=== PATIENT | male | born 1995 | race Caucasian/White ===

== ENCOUNTER 2017-06-15 17:11 | Emergency (ER) | payer OTHER ==
[2017-06-15 17:18] VITALS: BP 127/76; PULSE 79; RESP 20; TEMP 99
--- NOTE | 2017-06-15 17:56 | XR ---
EXAMINATION TYPE: XR shoulder complete LT DATE OF EXAM: 06/15/2017 COMPARISON: NONE HISTORY: Pain TECHNIQUE: Shoulder examined in 3 views FINDINGS: The humeral head articulates with the glenoid. The acromio-clavicular junction is normal. No acute fractures or dislocations are evident. A follow up study can be performed 7-10 days from acute trauma for continued pain. IMPRESSION: 1. Normal Shoulder
--- NOTE | 2017-06-15 18:49 | ED ---
General Adult HPI - General Chief complaint: Extremity Injury, Upper Stated complaint: [facility] LEFT SHOULDER INJURY Time Seen by Provider: 06/15/17 17:39 Source: patient, RN notes reviewed Mode of arrival: ambulatory Limitations: no limitations - History of Present Illness Initial comments: 21-year-old male presents the emergency department for chief complaint of left shoulder pain x 1 hour. Patient states he was moving a box at work when he felt a pop in his shoulder. Patient states he has had pain since that time. Patient denies any shooting pain in his left arm. Patient states he can move his hand on the left upper extremity without any difficulty and he has full sensation in his hand. Patient states he can move his elbow. Patient denies pain in the wrist or elbow. Patient also states she has some tightness in the back between the scapula and spine. Patient states he does not have any pain in his neck. Patient denies any other complaints at this time. Patient denies shortness of breath, chest pain, abdominal pain, nausea or vomiting. - Related Data Previous Rx's Medication Instructions Recorded Cyclobenzaprine [Flexeril] 5 mg PO TID #12 tablet 06/15/17 Ibuprofen [Motrin] 600 mg PO Q8HR PRN #20 tab 06/15/17 Allergies Allergy/AdvReac Type Severity Reaction Status Date / Time No Known Allergies Allergy Verified 06/15/17 17:18 Review of Systems ROS Statement: Those systems with pertinent positive or pertinent negative responses have been documented in the HPI. ROS Other: All systems not noted in ROS Statement are negative. Past Medical History Past Medical History: No Reported History History of Any Multi-Drug Resistant Organisms: None Reported Past Surgical History: No Surgical Hx Reported Past Psychological History: No Psychological Hx Reported Smoking Status: Never smoker Past Alcohol Use History: None Reported Past Drug Use History: None Reported General Exam Limitations: no limitations Respiratory exam: Present: normal lung sounds bilaterally. Absent: respiratory distress, wheezes, rales, rhonchi, stridor Cardiovascular Exam: Present: regular rate, normal rhythm, normal heart sounds. Absent: systolic murmur, diastolic murmur, rubs, gallop, clicks Extremities exam: Present: tenderness (Patient has some tenderness to the anterior left shoulder. Patient also has some tenderness to the superior trapezius between the scapula and spine on the left side. He also has very mild tenderness to the to the left side of the neck. Patient denies any tenderness along the C-spine or thoracic/lumbar spine.), normal capillary refill (Refill less than 2 seconds in the left upper extremity. Radial pulse 2 + in the left upper extremity.), other (+ empty can and dewey test. Patient not able to tolerate Neers test). Absent: full ROM (Patient has limited extension and abduction of left shoulder. Patient has full flexion of the left shoulder. Patient has full range of motion of the neck.), joint swelling (No swelling to the left shoulder.) Back exam: Present: normal inspection, full ROM, paraspinal tenderness ( Tenderness to the left upper back between the scapula and spine.). Absent: tenderness, vertebral tenderness Course Vital Signs 06/15/17 17:16 Temperature 99.0 F Pulse Rate 79 Respiratory 20 Rate Blood Pressure 127/76 O2 Sat by Pulse 99 Oximetry Medical Decision Making - Medical Decision Making 21-year-old male presents to the emergency department for chief complaint of left shoulder pain 1 hour. Patient was moving boxes at work when he felt a pop. Patient denies falling or any other injuries. Patient denies pain in the spine. On exam patient has some limited range of motion of the left shoulder. No swelling or ecchymosis noted of the left shoulder. She has some tenderness to this. Trapezius between the scapula and spine. No vertebral tenderness or pain with movement of the neck. X-ray of the left shoulder shows no acute fractures or dislocations. Patient likely has a muscle strain of the trapezius. He will take Motrin and Flexeril for pain relief. He was educated not to take Flexeril if he is driving or operating machinery. He will follow- up with his primary care provider in one to 2 days. He will return to the emergency department if he has any worsening symptoms. Disposition Clinical Impression: Shoulder pain, left Disposition: HOME SELF-CARE Condition: Good Instructions: Muscle Strain (ED), Shoulder Pain (ED) Additional Instructions: Please take Motrin or Tylenol for pain relief. Please take Flexeril as directed as long as you are not driving or working machinery. Please return to the emergency department if you have any worsening symptoms. Otherwise follow- up with primary care in 1-2 days. If symptoms continue follow-up with orthopedics. Prescriptions: Cyclobenzaprine [Flexeril] 5 mg PO TID #12 tablet Ibuprofen [Motrin] 600 mg PO Q8HR PRN #20 tab PRN Reason: Pain Is patient prescribed a controlled substance at d/c from ED?: No Referrals: None,Stated [Primary Care Provider] - 1-2 days Time of Disposition: 18:39
== END 2017-06-15 19:03 | disposition home or self-care (01) ==
LOC: EC 17:11
DX: M25.512 Pain in left shoulder (principal); X50.0XXA Overexertion from strenuous movement or load, initial encounter; Y99.0 Civilian activity done for income or pay; Y93.89 Activity, other specified; Z02.9 Encounter for administrative examinations, unspecified
CPT/HCPCS: 99283

== ENCOUNTER 2017-12-26 10:12 | Emergency (ER) | payer OTHER ==
[2017-12-26 10:29] VITALS: RESP 18
[2017-12-26] MEDS ORDERED: SODIUM CHLORIDE 0.9% 1,000 ML IV STA (11:10)
[2017-12-26] MEDS ORDERED: ONDANSETRON 4 MG/2 ML VIAL IVP STA (11:10)
[2017-12-26] MEDS ORDERED: ACETAMINOPHEN IV (For NPO) 1,000 MG in EMPTY BAG 1 BAG IVPB STA (11:10)
--- NOTE | 2017-12-26 11:13 | ED ---
General Adult HPI - General Chief complaint: Chest Pain Stated complaint: CHEST PAIN, LEFT SIDE PAIN Time Seen by Provider: 12/26/17 10:48 Source: patient, RN notes reviewed Mode of arrival: wheelchair Limitations: no limitations - History of Present Illness Initial comments: Patient 22-year-old male presented to the emergency room today with a chief complaint of abdominal pain times a week. He does not that he's had some symptoms of nausea vomiting diarrhea with his abdominal pain. He states that it as cramping greater on the left side. He states that he feels that the pain is radiating up into the left sided chest today. States he was at work working when he felt that he had the wind knocked out of him. He states he had a sharp pain to the left side of the chest wall. States that was the only episode. Patient states that he still experiencing some pain radiating up into the left side of the chest. He denies any weakness better or worse. Patient denies any other complaints or symptoms. Patient denies any recent fever, chills, shortness of breath, chest pain, back pain, numbness or tingling, headaches or visual changes, or any other complaints. - Related Data Home Medications Medication Instructions Recorded Confirmed Ibuprofen [Motrin Ib] 400 mg PO Q4H PRN 12/26/17 12/26/17 Previous Rx's Medication Instructions Recorded Dicyclomine [Bentyl] 20 mg PO QID #20 tablet 12/26/17 Allergies Allergy/AdvReac Type Severity Reaction Status Date / Time No Known Allergies Allergy Verified 12/26/17 11:43 Review of Systems ROS Statement: Those systems with pertinent positive or pertinent negative responses have been documented in the HPI. ROS Other: All systems not noted in ROS Statement are negative. Past Medical History Past Medical History: No Reported History History of Any Multi-Drug Resistant Organisms: None Reported Past Surgical History: No Surgical Hx Reported Past Psychological History: No Psychological Hx Reported Smoking Status: Former smoker Past Alcohol Use History: Occasional Past Drug Use History: None Reported General Exam - General Exam Comments Initial Comments: General: The patient is awake and alert, in no distress, and does not appear acutely ill. Eye: Pupils are equal, round and reactive to light. Extra-ocular movements are intact. No nystagmus. There is normal conjunctiva bilaterally. No signs of icterus. Ears, nose, mouth and throat: There are moist mucous membranes and no oral lesions. Neck: The neck is supple, there is no tenderness or JVD. Cardiovascular: There is a regular rate and rhythm. No murmur, rub or gallop is appreciated. Respiratory: Lungs are clear to auscultation, respirations are non-labored, breath sounds are equal. No wheezes, stridor, rales, or rhonchi. Gastrointestinal: Abdomen soft on palpation. Patient does have mild tenderness left lower quadrant. No rebound, guarding or CVA tenderness. Musculoskeletal: Normal ROM, no tenderness. Sensation intact. Strength 5/5. Pulses equal bilaterally 2+. Neurological: A&O x 3. CN II-XII intact, There are no obvious motor or sensory deficits. Coordination appears grossly intact. Speech is normal. Skin: Skin is warm and dry and no rashes or lesions are noted. Psychiatric: Cooperative, appropriate mood & affect, normal judgment. Limitations: no limitations Course Vital Signs 12/26/17 10:25 Temperature 98.1 F Pulse Rate 97 Respiratory 18 Rate Blood Pressure 134/78 O2 Sat by Pulse 98 Oximetry EKG Findings - EKG Comments: EKG Findings:: EKG performed at 1036: Shows normal sinus rhythm at 80 beats per minute. CA interval 148. QRS 92. QT/QTC 352/405. No acute ST changes. Medical Decision Making - Medical Decision Making Patient reexamined at this time shows no signs of distress. Patient's EKG shows normal sinus rhythm. His cardiac enzymes are negative. Patient does have pain left side of the abdomen that radiates up into the chest wall. Patient at this time is feeling comfortable and states that his vertigo home. His CT was reviewed and does show evidence for an enteritis. Remaining blood work unremarkable. Patient has had diarrhea for the past week. Patient is advised to follow-up the family doctor next 2 days will be started on Bentyl for symptoms. Advised to return if symptoms increase worsen or fail concerns. - Lab Data Result diagrams: 12/26/17 10:59 12/26/17 10:59 Lab Results 12/26/17 12/26/17 12/26/17 Range/Units 10:59 10:59 10:59 WBC 9.0 (3.8-10.6) k/uL RBC 4.90 (4.30-5.90) m/uL Hgb 14.2 (13.0-17.5) gm/dL Hct 42.9 (39.0-53.0) % MCV 87.6 (80.0-100.0) fL MCH 29.1 (25.0-35.0) pg MCHC 33.2 (31.0-37.0) g/dL RDW 13.2 (11.5-15.5) % Plt Count 335 (150-450) k/uL Neutrophils % 69 % Lymphocytes % 21 % Monocytes % 6 % Eosinophils % 3 % Basophils % 1 % Neutrophils # 6.2 (1.3-7.7) k/uL Lymphocytes # 1.9 (1.0-4.8) k/uL Monocytes # 0.5 (0-1.0) k/uL Eosinophils # 0.2 (0-0.7) k/uL Basophils # 0.1 (0-0.2) k/uL Sodium 141 (137-145) mmol/L Potassium 4.4 (3.5-5.1) mmol/L Chloride 103 (98-107) mmol/L Carbon Dioxide 29 (22-30) mmol/L Anion Gap 9 mmol/L BUN 16 (9-20) mg/dL Creatinine 0.96 (0.66-1.25) mg/dL Est GFR (CKD-EPI)AfAm >90 (>60 ml/min/1.73 sqM) Est GFR (CKD-EPI)NonAf >90 (>60 ml/min/1.73 sqM) Glucose 84 (74-99) mg/dL Calcium 10.0 (8.4-10.2) mg/dL Total Bilirubin 0.4 (0.2-1.3) mg/dL AST 33 (17-59) U/L ALT 57 (21-72) U/L Alkaline Phosphatase 66 (38-126) U/L Total Creatine Kinase 185 H (55-170) U/L CK-MB (CK-2) 2.3 (0.0-2.4) ng/mL CK-MB (CK-2) Rel Index 1.2 Troponin I <0.012 (0.000-0.034) ng/mL Total Protein 7.9 (6.3-8.2) g/dL Albumin 4.6 (3.5-5.0) g/dL Amylase 40 (30-110) U/L Lipase 61 (23-300) U/L Urine Color Urine Appearance (Clear) Urine pH (5.0-8.0) Ur Specific [place] (1.001-1.035) Urine Protein (Negative) Urine Glucose (UA) (Negative) Urine Ketones (Negative) Urine Blood (Negative) Urine Nitrite (Negative) Urine Bilirubin (Negative) Urine Urobilinogen (<2.0) mg/dL Ur Leukocyte Esterase (Negative) 12/26/17 Range/Units 12:33 WBC (3.8-10.6) k/uL RBC (4.30-5.90) m/uL Hgb (13.0-17.5) gm/dL Hct (39.0-53.0) % MCV (80.0-100.0) fL MCH (25.0-35.0) pg MCHC (31.0-37.0) g/dL RDW (11.5-15.5) % Plt Count (150-450) k/uL Neutrophils % % Lymphocytes % % Monocytes % % Eosinophils % % Basophils % % Neutrophils # (1.3-7.7) k/uL Lymphocytes # (1.0-4.8) k/uL Monocytes # (0-1.0) k/uL Eosinophils # (0-0.7) k/uL Basophils # (0-0.2) k/uL Sodium (137-145) mmol/L Potassium (3.5-5.1) mmol/L Chloride (98-107) mmol/L Carbon Dioxide (22-30) mmol/L Anion Gap mmol/L BUN (9-20) mg/dL Creatinine (0.66-1.25) mg/dL Est GFR (CKD-EPI)AfAm (>60 ml/min/1.73 sqM) Est GFR (CKD-EPI)NonAf (>60 ml/min/1.73 sqM) Glucose (74-99) mg/dL Calcium (8.4-10.2) mg/dL Total Bilirubin (0.2-1.3) mg/dL AST (17-59) U/L ALT (21-72) U/L Alkaline Phosphatase (38-126) U/L Total Creatine Kinase (55-170) U/L CK-MB (CK-2) (0.0-2.4) ng/mL CK-MB (CK-2) Rel Index Troponin I (0.000-0.034) ng/mL Total Protein (6.3-8.2) g/dL Albumin (3.5-5.0) g/dL Amylase (30-110) U/L Lipase (23-300) U/L Urine Color Light Yellow Urine Appearance Clear (Clear) Urine pH 7.5 (5.0-8.0) Ur Specific [place] 1.017 (1.001-1.035) Urine Protein Negative (Negative) Urine Glucose (UA) Negative (Negative) Urine Ketones Negative (Negative) Urine Blood Negative (Negative) Urine Nitrite Negative (Negative) Urine Bilirubin Negative (Negative) Urine Urobilinogen <2.0 (<2.0) mg/dL Ur Leukocyte Esterase Negative (Negative) Disposition Clinical Impression: Enteritis Disposition: HOME SELF-CARE Condition: Good Instructions: Enteritis (ED) Additional Instructions: Please use medication as discussed. Please follow-up with family doctor in the next 2 days of symptoms have not improved. Please return to emergency room if the symptoms increase or worsen or for any other concerns. Prescriptions: Dicyclomine [Bentyl] 20 mg PO QID #20 tablet Is patient prescribed a controlled substance at d/c from ED?: No Referrals: None,Stated [Primary Care Provider] - 1-2 days Time of Disposition: 13:59
[2017-12-26 11:23] LABS: Basophils # (A) 0.1 k/uL (0-0.2); Basophils % (A) 1 %; Eosinophils # (A) 0.2 k/uL (0-0.7); Eosinophils % (A) 3 %; HCT 42.9 % (39.0-53.0); HGB 14.2 gm/dL (13.0-17.5); Lymphocytes # (A) 1.9 k/uL (1.0-4.8); Lymphocytes % (A) 21 %; MCH 29.1 pg (25.0-35.0); MCHC 33.2 g/dL (31.0-37.0); MCV 87.6 fL (80.0-100.0); Mean Platelet Volume 6.9; Monocytes # (A) 0.5 k/uL (0-1.0); Monocytes % (A) 6 %; Neutrophils # (A) 6.2 k/uL (1.3-7.7); Neutrophils % (A) 69 %; Platelet Count 335 k/uL (150-450); RDW 13.2 % (11.5-15.5)
[2017-12-26 11:31] LABS: ALT 57 U/L (21-72); AST 33 U/L (17-59); Albumin 4.6 g/dL (3.5-5.0); Alkaline Phosphatase 66 U/L (38-126); Amylase 40 U/L (30-110); Anion Gap 9 mmol/L; Blood Urea Nitrogen 16 mg/dL (9-20); Carbon Dioxide 29 mmol/L (22-30); Chloride 103 mmol/L (98-107); Glucose 84 mg/dL (74-99); Lipase 61 U/L (23-300); Potassium 4.4 mmol/L (3.5-5.1); Sodium 141 mmol/L (137-145); Total Bilirubin 0.4 mg/dL (0.2-1.3); Total Protein 7.9 g/dL (6.3-8.2)
--- NOTE | 2017-12-26 11:42 | XR ---
EXAMINATION TYPE: XR chest 2V DATE OF EXAM: 12/26/2017 COMPARISON: NONE HISTORY: Chest pain TECHNIQUE: Frontal and lateral views of the chest are obtained. FINDINGS: There is no focal air space opacity. No evidence for pneumothorax. No pleural effusion. The cardiac silhouette size is within normal limits. The osseous structures are grossly intact. IMPRESSION: 1. No acute cardiopulmonary process.
--- NOTE | 2017-12-26 11:43 | XR ---
EXAMINATION TYPE: XR KUB DATE OF EXAM: 12/26/2017 11:36 AM CLINICAL HISTORY: Left lower quadrant abdominal pain. TECHNIQUE: Single upright image of the abdomen is obtained. COMPARISON: None. FINDINGS: Scattered gas is seen in non-distended small bowel loops. Gas and fecal material is seen in non-distended colon. Few colonic air-fluid levels are within nondilated large bowel. There is no vis ceromegaly, pneumoperitoneum, or abnormal calcification appreciated. The lung bases are clear and the osseous structures are intact. IMPRESSION: Nonobstructive bowel gas pattern. Few colonic air-fluid levels may relate to colonic paola bsorption in clinically correlate with diarrhea/colitis.
[2017-12-26 11:50] LABS: Creatine Kinase 185 U/L (55-170)
[2017-12-26 12:00] LABS: Creatine Kinase MB 2.3 ng/mL (0.0-2.4)
[2017-12-26 12:04] LABS: Troponin I <0.012 ng/mL (0.000-0.034)
[2017-12-26 13:06] LABS: Appearance,Urine Clear (Clear); Bilirubin,Urine Negative (Negative); Blood,Urine Negative (Negative); Color,Urine Light Yellow; Glucose,Urine (UA) Negative (Negative); Ketones,Urine Negative (Negative); Leukocyte Esterase,Urine Negative (Negative); Nitrite,Urine Negative (Negative); PH, Urine 7.5 (5.0-8.0); Protein,Urine Negative (Negative); Specific Gravity,Urine 1.017 (1.001-1.035); Urobilinogen,Urine <2.0 mg/dL (<2.0)
--- NOTE | 2017-12-26 13:50 | CT ---
EXAMINATION TYPE: CT abdomen pelvis w con DATE OF EXAM: 12/26/2017 COMPARISON: HISTORY: Left sided chest and Abdominal pain CT DLP: 655.7 mGycm CONTRAST: CT scan of the abdomen and pelvis is performed without Oral Contrast and with IV Contrast, patient in jected with 100 mL of Isovue 300. FINDINGS: LUNG BASES-: No visible nodule. No infiltrate. LIVER/GB: There is fatty liver. No calcified gallstones. No space occupying hepatic lesion. Biliary tree is of normal caliber. PANCREAS: No inflammation. No distinct mass. SPLEEN: No splenic enlargement. No lesion seen. ADRENALS: No nodule. No thickening. KIDNEYS/BLADDER: No hydronephrosis. No nephrolithiasis. No distinct renal mass. Urinary bladder g rossly unremarkable. BOWEL: Normal appendix. Normal bowel caliber. Mild small bowel wall thickening may reflect enteritis . GENITAL ORGANS: No gross abnormality. LYMPH NODES: No greater than 1cm abdominal or pelvic lymph nodes are appreciated. AORTA: No significant abnormality. OSSEOUS STRUCTURES: No significant abnormality is seen. OTHER: No significant additional abnormality is seen. IMPRESSION: 1. Correlate for small bowel enteritis.
[2017-12-26 14:05] VITALS: BP 140/73; PULSE 91; TEMP 98.6
== END 2017-12-26 14:06 | disposition home or self-care (01) ==
LOC: EC 10:12
DX: K52.9 Noninfective gastroenteritis and colitis, unspecified (principal); Z87.891 Personal history of nicotine dependence
CPT/HCPCS: 36415; 93005; 80053; 82150; 82550; 82553; 83690; 84484; 85025; 81003; 71046; 74018; 74177; 99285; 96365; 96361 ×2; J0131; Q9967

== ENCOUNTER 2019-08-22 01:57 | Emergency (ER) | payer OTHER ==
[2019-08-22 02:09] VITALS: BP 150/99; PULSE 97; RESP 18; TEMP 98
[2019-08-22] MEDS ORDERED: AMOXIC-POT CLAV 875MG STARTER PACK 2 TAB BTL PO STA (02:14)
[2019-08-22] MEDS ORDERED: FAMOTIDINE 20 MG TAB PO STA (02:14)
[2019-08-22] MEDS ORDERED: diphenhydrAMINE 50 MG CAP PO STA (02:14)
[2019-08-22] MEDS ORDERED: methylPREDNISolone SOD SUCCI 125 MG/2 ML VIAL IM ONE (02:14)
--- NOTE | 2019-08-22 02:21 | ED ---
General Adult HPI - General Chief complaint: ENT Stated complaint: Throat Issues Time Seen by Provider: 08/22/19 02:06 Source: patient, RN notes reviewed Mode of arrival: ambulatory Limitations: no limitations - History of Present Illness Initial comments: 24-year-old male presents to the emergency department for a chief complaint of "displaced tonsil." Patient states that his throat felt swollen earlier today. When he looked in the mere he thought his tonsils enlarged. Patient denies any pain in his throat. Denies any difficulty swallowing. Denies any difficulty breathing. Denies any swelling of the lips or tongue. Denies fevers or chills.Patient has no other complaints at this time including shortness of breath, chest pain, abdominal pain, nausea or vomiting, headache, or visual changes. - Related Data Home Medications Medication Instructions Recorded Confirmed Ibuprofen [Motrin Ib] 400 mg PO Q4H PRN 12/26/17 12/26/17 Previous Rx's Medication Instructions Recorded Dicyclomine [Bentyl] 20 mg PO QID #20 tablet 12/26/17 Allergies Allergy/AdvReac Type Severity Reaction Status Date / Time No Known Allergies Allergy Verified 12/26/17 11:43 Review of Systems ROS Statement: Those systems with pertinent positive or pertinent negative responses have been documented in the HPI. ROS Other: All systems not noted in ROS Statement are negative. Past Medical History Past Medical History: No Reported History History of Any Multi-Drug Resistant Organisms: None Reported Past Surgical History: No Surgical Hx Reported Past Psychological History: No Psychological Hx Reported Smoking Status: Former smoker Past Alcohol Use History: Occasional Past Drug Use History: None Reported General Exam Limitations: no limitations General appearance: alert, in no apparent distress Head exam: Present: atraumatic, normocephalic, normal inspection Eye exam: Present: normal appearance, PERRL, EOMI. Absent: scleral icterus, conjunctival injection, periorbital swelling ENT exam: Present: normal exam, mucous membranes moist, TM's normal bilaterally, normal external ear exam. Absent: normal oropharynx (Tonsils appear normal bilaterally however uvula does appear somewhat enlarged. Oropharynx is patent.) Neck exam: Present: normal inspection, full ROM. Absent: tenderness, meningismus, lymphadenopathy Respiratory exam: Present: normal lung sounds bilaterally. Absent: respiratory distress, wheezes, rales, rhonchi, stridor Cardiovascular Exam: Present: regular rate, normal rhythm, normal heart sounds. Absent: systolic murmur, diastolic murmur, rubs, gallop, clicks GI/Abdominal exam: Present: soft, normal bowel sounds. Absent: distended, tenderness, guarding, rebound, rigid Neurological exam: Present: alert Course Vital Signs 08/22/19 02:03 Temperature 98.0 F Pulse Rate 97 Respiratory 18 Rate Blood Pressure 150/99 O2 Sat by Pulse 100 Oximetry Medical Decision Making - Medical Decision Making Patient will be treated for uvulitis with steroid and Augmentin. He will also be given Benadryl and Pepcid to cover any ALLERGIC cause of uvulitis. Patient will follow up with primary care in 2 days and return for any worsening symptoms. Disposition Clinical Impression: Uvulitis Disposition: HOME SELF-CARE Condition: Good Instructions (If sedation given, give patient instructions): Uvulitis (ED) Additional Instructions: Please take antibiotic as directed. Please follow-up with primary care or ENT in 1-2 days. Return to the emergency room for any worsening symptoms. Is patient prescribed a controlled substance at d/c from ED?: No Referrals: Chacho Covarrubias MD [Primary Care Provider] - 1-2 days Adeel Barry MD [STAFF PHYSICIAN] - 1-2 days Time of Disposition:
== END 2019-08-22 02:35 | disposition home or self-care (01) ==
LOC: EC 01:57
DX: K12.2 Cellulitis and abscess of mouth (principal); Z87.891 Personal history of nicotine dependence
CPT/HCPCS: 99283; 96372; J2930

== ENCOUNTER 2020-01-06 15:13 | Emergency (ER) | payer OTHER ==
--- NOTE | 2020-01-06 17:01 | ED ---
URI HPI - General Chief Complaint: Upper Respiratory Infection Stated Complaint: Fever Time Seen by Provider: 01/06/20 16:37 Source: patient, RN notes reviewed Mode of arrival: ambulatory Limitations: no limitations - History of Present Illness Initial Comments: 24 s-year-old male presents emergency Department with chief complaint of fever cough congestion. Patient is from and has nasal congestion, mild sore throat. Patient states that he did no sick contacts. Denies any chest congestion, no shortness breath no chest pain. He states he had a temp of 103.4 he did take ibuprofen prior arrival. Patient has no sniffing a past medical history. - Related Data Home Medications Medication Instructions Recorded Confirmed Ibuprofen [Motrin Ib] 200 mg PO Q8H PRN 01/06/20 01/06/20 Allergies Allergy/AdvReac Type Severity Reaction Status Date / Time No Known Allergies Allergy Verified 01/06/20 17:45 Review of Systems ROS Statement: Those systems with pertinent positive or pertinent negative responses have been documented in the HPI. ROS Other: All systems not noted in ROS Statement are negative. Past Medical History Past Medical History: No Reported History History of Any Multi-Drug Resistant Organisms: None Reported Past Surgical History: No Surgical Hx Reported Past Psychological History: No Psychological Hx Reported Smoking Status: Never smoker Past Alcohol Use History: Occasional Past Drug Use History: None Reported General Exam Limitations: no limitations General appearance: alert, in no apparent distress Head exam: Present: atraumatic, normocephalic, normal inspection Eye exam: Present: normal appearance, PERRL, EOMI. Absent: scleral icterus, conjunctival injection, periorbital swelling ENT exam: Present: normal exam, normal oropharynx, mucous membranes moist Neck exam: Present: normal inspection, full ROM. Absent: tenderness, meningismus, lymphadenopathy Respiratory exam: Present: normal lung sounds bilaterally. Absent: respiratory distress, wheezes, rales, rhonchi, stridor Cardiovascular Exam: Present: normal rhythm, tachycardia, normal heart sounds. Absent: systolic murmur, diastolic murmur, rubs, gallop, clicks GI/Abdominal exam: Present: soft, normal bowel sounds. Absent: distended, tenderness, guarding, rebound, rigid Neurological exam: Present: alert, oriented X3 Skin exam: Present: warm, dry, intact, normal color. Absent: rash Course Vital Signs 11/09/20 15:33 Temperature 98.8 F Pulse Rate 111 H Respiratory 18 Rate Blood Pressure 119/74 O2 Sat by Pulse 99 Oximetry Medical Decision Making - Medical Decision Making 24-year-old male presented for fevercongestion concern for covid patient has negative flu and coronavirus. Patient has a viral URI. - Lab Data Lab Results 01/06/20 Range/Units 16:59 Coronavirus (PCR) Not Detected (Not Detectd) Influenza Type A RNA Not Detected (Not Detectd) Influenza Type B (PCR) Not Detected (Not Detectd) Disposition Clinical Impression: Acute upper respiratory infection Disposition: HOME SELF-CARE Condition: Stable Instructions (If sedation given, give patient instructions): Upper Respiratory Infection (ED) Additional Instructions: Please return to the Emergency Department if symptoms worsen or any other concerns. Is patient prescribed a controlled substance at d/c from ED?: No Referrals: Chacho Covarrubias MD [Primary Care Provider] - 1-2 days Time of Disposition: 18:00
[2020-01-06 17:50] LABS: SARS-CoV-2 RNA Rapid Abbott Not Detected (Not Detectd)
[2020-01-06 18:50] VITALS: BP 131/79; PULSE 104; RESP 19; TEMP 99.3
== END 2020-01-06 18:28 | disposition home or self-care (01) ==
LOC: EC 15:13
DX: J06.9 Acute upper respiratory infection, unspecified (principal); R00.0 Tachycardia, unspecified; Z20.828 Contact with and (suspected) exposure to other viral communicable diseases
CPT/HCPCS: 87502; 87635; 99283